=== PATIENT | male | born 1950 | race Caucasian/White ===

== ENCOUNTER → 2017-06-28 | Outpatient (CLI) | payer MEDICARE, BC ==
[~2017-06-28] MED LIST: SODIUM CHLORIDE 0.9% 500 ML in EMPTY BAG 1 BAG IV PRN
[2017-06-28] MEDS: INFLIXIMAB-DYYB 400 MG in SODIUM CHLORIDE 0.9% 250 ML IV ONE ×2 (09:05→09:10)
[2017-06-28 09:10] VITALS: TEMP 97.4
[2017-06-28 09:58] VITALS: RESP 16
[2017-06-28 11:13] VITALS: BP 158/94; PULSE 62
== END | disposition home or self-care (01) ==
LOC: PROCWHC3 08:29
PROVIDERS: ATTEND Internal Medicine Gastroenterology
DX: M05.79 Rheumatoid arthritis with rheumatoid factor of multiple sites without organ or systems involvement (principal)
CPT/HCPCS: 96413; 96415; Q5102

== ENCOUNTER → 2018-02-27 | Outpatient (CLI) | payer MEDICARE, BC ==
[~2018-02-27] MED LIST changes: +INFLIXIMAB-DYYB 400 MG in SODIUM CHLORIDE 0.9% 250 ML IV NR
[2018-02-27 09:10] VITALS: RESP 16; TEMP 98.1
[2018-02-27 10:26] VITALS: BP 147/102; PULSE 57
== END | disposition home or self-care (01) ==
LOC: PROCWHC3 07:44
PROVIDERS: ATTEND Internal Medicine Rheumatology
DX: M05.79 Rheumatoid arthritis with rheumatoid factor of multiple sites without organ or systems involvement (principal)
CPT/HCPCS: 96413; 96415; Q5103

== ENCOUNTER → 2018-05-01 | Outpatient (CLI) | payer MEDICARE, BC ==
[2018-05-01 08:56] VITALS: RESP 16; TEMP 97.8
[2018-05-01 11:00] VITALS: BP 150/90; PULSE 62
== END | disposition home or self-care (01) ==
LOC: PROCWHC3 08:26
PROVIDERS: ATTEND Internal Medicine Rheumatology
DX: M05.79 Rheumatoid arthritis with rheumatoid factor of multiple sites without organ or systems involvement (principal)
CPT/HCPCS: 96413; 96415; Q5103

== ENCOUNTER → 2018-07-03 | Outpatient (CLI) | payer MEDICARE, BC ==
[2018-07-03 09:05] VITALS: RESP 16; TEMP 97.7
[2018-07-03 10:57] VITALS: BP 160/89; PULSE 80
== END ==
LOC: PROCWHC3 08:29
PROVIDERS: ATTEND Internal Medicine Rheumatology
DX: M05.79 Rheumatoid arthritis with rheumatoid factor of multiple sites without organ or systems involvement (principal)
CPT/HCPCS: 96413; 96415; Q5103

== ENCOUNTER → 2019-03-04 | Outpatient (CLI) | payer MEDICARE, BC ==
[~2019-03-04] MED LIST changes: +SODIUM CHLORIDE 0.9% 500 ML 500 ML in EMPTY BAG 1 BAG IV PRN; -SODIUM CHLORIDE 0.9% 500 ML in EMPTY BAG 1 BAG IV PRN
[2019-03-04 08:22] VITALS: RESP 16; TEMP 98.1
[2019-03-04 10:01] VITALS: BP 129/93; PULSE 56
== END | disposition home or self-care (01) ==
LOC: PROCWHC3 08:06
PROVIDERS: ATTEND Internal Medicine Rheumatology
DX: M05.79 Rheumatoid arthritis with rheumatoid factor of multiple sites without organ or systems involvement (principal)
CPT/HCPCS: 96413; 96415; Q5103

== ENCOUNTER → 2019-04-29 | Outpatient (CLI) | payer MEDICARE, BC ==
[2019-04-29 08:26] VITALS: RESP 16; TEMP 97.6
[2019-04-29 10:06] VITALS: BP 148/89; PULSE 60
== END ==
LOC: PROCWHC3 08:04
PROVIDERS: ATTEND Internal Medicine Rheumatology
DX: M05.79 Rheumatoid arthritis with rheumatoid factor of multiple sites without organ or systems involvement (principal)
CPT/HCPCS: 96413; 96415; Q5103

== ENCOUNTER → 2019-07-01 | Outpatient (CLI) | payer MEDICARE, BC ==
[2019-07-01 08:21] VITALS: TEMP 97.8
[2019-07-01 09:35] VITALS: RESP 18
[2019-07-01 10:17] VITALS: BP 140/91; PULSE 53
== END ==
LOC: PROCWHC3 08:04
PROVIDERS: ATTEND Internal Medicine Rheumatology
DX: M05.79 Rheumatoid arthritis with rheumatoid factor of multiple sites without organ or systems involvement (principal)
CPT/HCPCS: 96365; 96366; Q5103

== ENCOUNTER → 2021-03-24 | Outpatient (CLI) | payer MEDICARE, BC ==
[~2021-03-24] MED LIST changes: +INFLIXIMAB-DYYB 400 MG in SODIUM CHLORIDE 0.9% 210 ML IV NR; -INFLIXIMAB-DYYB 400 MG in SODIUM CHLORIDE 0.9% 250 ML IV NR
[2021-03-24 08:23] VITALS: RESP 16; TEMP 98
[2021-03-24 09:48] VITALS: BP 144/95; PULSE 64
== END ==
LOC: PROCWHC3 07:48
PROVIDERS: ATTEND Internal Medicine Rheumatology
DX: M05.79 Rheumatoid arthritis with rheumatoid factor of multiple sites without organ or systems involvement (principal)
CPT/HCPCS: 96413; 96415; Q5103

== ENCOUNTER → 2021-05-24 | Outpatient (CLI) | payer MEDICARE, BC ==
[2021-05-24 08:23] VITALS: RESP 16; TEMP 97.4
[2021-05-24 09:37] VITALS: BP 145/82; PULSE 64
== END ==
LOC: PROCWHC3 07:54
PROVIDERS: ATTEND Internal Medicine Rheumatology
DX: M05.79 Rheumatoid arthritis with rheumatoid factor of multiple sites without organ or systems involvement (principal)
CPT/HCPCS: 96413; 96415; Q5103

== ENCOUNTER → 2021-07-22 | Outpatient (CLI) | payer MEDICARE, BC ==
[2021-07-22 08:26] VITALS: TEMP 98.1
[2021-07-22 09:06] VITALS: RESP 16
[2021-07-22 09:28] VITALS: PULSE 60
[2021-07-22 09:55] VITALS: BP 135/87
== END ==
LOC: PROCWHC3 08:06
PROVIDERS: ATTEND Internal Medicine Rheumatology
DX: M05.79 Rheumatoid arthritis with rheumatoid factor of multiple sites without organ or systems involvement (principal)
CPT/HCPCS: 96413; 96415; Q5103

== ENCOUNTER → 2022-03-11 | Outpatient (CLI) | payer MEDICARE, BC ==
[~2022-03-11] MED LIST changes: -INFLIXIMAB-DYYB 400 MG in SODIUM CHLORIDE 0.9% 210 ML IV NR; +INFLIXIMAB-DYYB 400 MG in SODIUM CHLORIDE 0.9% 250 ML IV NR
[2022-03-11 07:52] VITALS: RESP 16; TEMP 98
[2022-03-11 09:11] VITALS: BP 142/86; PULSE 57
== END ==
LOC: PROCWHC3 07:22
PROVIDERS: ATTEND Internal Medicine Rheumatology
DX: M05.79 Rheumatoid arthritis with rheumatoid factor of multiple sites without organ or systems involvement (principal)
CPT/HCPCS: 96413; 96415; Q5103

== ENCOUNTER → 2022-07-08 | Outpatient (CLI) | payer MEDICARE, BC ==
[2022-07-08 07:46] VITALS: RESP 16; TEMP 97.7
[2022-07-08 10:42] VITALS: BP 147/90; PULSE 54
== END ==
LOC: PROCWHC3 07:29
PROVIDERS: ATTEND Internal Medicine Rheumatology
DX: M05.79 Rheumatoid arthritis with rheumatoid factor of multiple sites without organ or systems involvement (principal); E66.9 Obesity, unspecified; Z68.27 Body mass index [BMI] 27.0-27.9, adult
CPT/HCPCS: 96413; 96415; Q5103

== ENCOUNTER → 2023-03-02 | Outpatient (CLI) | payer MEDICARE, BC ==
[2023-03-02 07:56] VITALS: TEMP 97.8
[2023-03-02 08:36] VITALS: RESP 15
[2023-03-02 09:18] VITALS: BP 122/78; PULSE 63
== END ==
LOC: PROCWHC3 07:31
PROVIDERS: ATTEND Internal Medicine Rheumatology
DX: M06.9 Rheumatoid arthritis, unspecified (principal)
CPT/HCPCS: 96365; 96366; Q5103

== ENCOUNTER → 2023-04-27 | Outpatient (CLI) | payer MEDICARE, BC ==
[2023-04-27 07:37] VITALS: TEMP 97.9
[2023-04-27 08:27] VITALS: RESP 16
[2023-04-27 08:47] VITALS: BP 126/72; PULSE 57
== END ==
LOC: PROCWHC3 07:21
PROVIDERS: ATTEND Internal Medicine Rheumatology
DX: M06.9 Rheumatoid arthritis, unspecified (principal)
CPT/HCPCS: 96413; Q5103; 96415

== ENCOUNTER → 2023-06-29 | Outpatient (CLI) | payer MEDICARE, BC ==
[2023-06-29 10:30] VITALS: RESP 16; TEMP 97.7
[2023-06-29 11:44] VITALS: BP 123/76; PULSE 50
== END ==
LOC: PROCWHC3 10:00
PROVIDERS: ATTEND Internal Medicine Rheumatology
DX: M06.9 Rheumatoid arthritis, unspecified (principal)
CPT/HCPCS: 96413; 96415; Q5103

== ENCOUNTER → 2024-03-05 | Outpatient (CLI) | payer MEDICARE, BC ==
[2024-03-05 08:32] VITALS: RESP 16; TEMP 97.8
[2024-03-05] MEDS: SODIUM CHLORIDE 0.9% 500 ML 500 ML in EMPTY BAG 1 BAG IV PRN (08:34)
[2024-03-05] MEDS: INFLIXIMAB-DYYB 400 MG in SODIUM CHLORIDE 0.9% 250 ML IV NR (08:47)
[2024-03-05 09:55] VITALS: BP 116/75; PULSE 52
== END ==
LOC: PROCWHC3 08:11
PROVIDERS: ATTEND Internal Medicine Rheumatology
DX: M06.9 Rheumatoid arthritis, unspecified (principal)
CPT/HCPCS: 96413; 96415; Q5103

== ENCOUNTER → 2024-05-25 | Outpatient (CLI) | payer MEDICARE, BC ==
--- NOTE | 2024-05-25 15:58 | MR ---
EXAMINATION TYPE: MR brain wo/w con DATE OF EXAM: 05/25/2024 2:58 PM CLINICAL INDICATION: Male, 73 years old with history of R63.4, R25.1;, severe imbalance, tremors, fal ls, headaches COMPARISON: None TECHNIQUE: Multi planar, multi sequence imaging was performed through the brain including: T1, T2, In version recovery, susceptibility weighted imaging and gradient echo imaging and Diffusion weighted im aging. The patient was then given intravenous contrast and multi planar, T1 fat-saturation images wer e obtained. IV Contrast: 8 cc Gadavist FINDINGS: The eddy-white junctions, ventricular system, basal cisterns appear unremarkable. Diffusion-weighted imaging shows no evidence of restricted diffusion to suggest acute/subacute infarct. Intracranial ar terial flow voids are maintained. Midline structures show no abnormality. Scattered foci of high T2 s ignal intensity are seen within the periventricular white matter. The susceptibility weighted images do not reveal any evidence for micro-hemorrhage. After administration of gadolinium, no abnormal enha ncement is seen. The bone marrow signal is within normal limits. Paranasal sinuses and mastoid air cells: No significant paranasal sinus disease. Visualized orbits: Orbital contents are intact. IMPRESSION: 1. No evidence of intracranial mass, acute/subacute infarct, or abnormal enhancement. 2. Nonspecific white matter changes, likely related to small vessel ischemic disease.
== END | disposition home or self-care (01) ==
LOC: RADMRIMAIN 13:44
PROVIDERS: ATTEND Family Medicine
DX: R63.4 Abnormal weight loss (principal); R25.1 Tremor, unspecified
CPT/HCPCS: 70553; A9585

== ENCOUNTER → 2024-07-02 | Outpatient (CLI) | payer MEDICARE, BC ==
[~2024-07-02] MED LIST changes: -SODIUM CHLORIDE 0.9% 500 ML 500 ML in EMPTY BAG 1 BAG IV PRN
[2024-07-02] MEDS: SODIUM CHLORIDE 0.9% 500 ML 500 ML in EMPTY BAG 1 BAG IV PRN (08:10)
[2024-07-02 08:15] VITALS: RESP 16; TEMP 97.9
[2024-07-02] MEDS: INFLIXIMAB-DYYB 300 MG in SODIUM CHLORIDE 0.9% 250 ML IV NR (08:47)
[2024-07-02 09:55] VITALS: BP 119/75; PULSE 52
== END ==
LOC: PROCWHC3 07:39
PROVIDERS: ATTEND Internal Medicine Rheumatology
DX: M06.9 Rheumatoid arthritis, unspecified (principal)
CPT/HCPCS: 96413; 96415

== ENCOUNTER → 2024-08-20 | Outpatient (CLI) | payer MEDICARE, BC ==
[~2024-08-20] MED LIST changes: -INFLIXIMAB-DYYB 400 MG in SODIUM CHLORIDE 0.9% 250 ML IV NR; +SODIUM CHLORIDE 0.9% 250 ML in EMPTY BAG 1 BAG IV PRN
[2024-08-20 07:52] VITALS: RESP 16; TEMP 97.8
[2024-08-20] MEDS: SODIUM CHLORIDE 0.9% 500 ML 500 ML in EMPTY BAG 1 BAG IV PRN (08:02)
[2024-08-20] MEDS: INFLIXIMAB-DYYB 300 MG in SODIUM CHLORIDE 0.9% 250 ML IV NR (08:09)
[2024-08-20 09:21] VITALS: BP 119/77; PULSE 52
== END ==
LOC: PROCWHC3 07:41
PROVIDERS: ATTEND Internal Medicine Rheumatology
DX: M06.9 Rheumatoid arthritis, unspecified (principal)
CPT/HCPCS: 96413; 96415; Q5103

== ENCOUNTER → 2024-10-15 | Outpatient (CLI) | payer MEDICARE, BC ==
[2024-10-15] MEDS: SODIUM CHLORIDE 0.9% 500 ML 500 ML in EMPTY BAG 1 BAG IV PRN (08:00)
[2024-10-15 08:05] VITALS: RESP 16; TEMP 97.8
[2024-10-15] MEDS: INFLIXIMAB-DYYB 300 MG in SODIUM CHLORIDE 0.9% 250 ML IV NR (08:48)
[2024-10-15 09:52] VITALS: BP 114/76; PULSE 55
== END ==
LOC: PROCWHC3 07:47
PROVIDERS: ATTEND Internal Medicine Rheumatology
DX: M06.9 Rheumatoid arthritis, unspecified (principal)
CPT/HCPCS: 96413; 96415; Q5103

== ENCOUNTER → 2024-12-17 | Outpatient (CLI) | payer MEDICARE, BC ==
[~2024-12-17] MED LIST changes: +INFLIXIMAB-DYYB 300 MG in SODIUM CHLORIDE 0.9% 250 ML IV NR; +SODIUM CHLORIDE 0.9% 500 ML 500 ML in EMPTY BAG 1 BAG IV PRN
== END ==
LOC: PROCWHC3 07:32
PROVIDERS: ATTEND Internal Medicine Rheumatology
DX: Z53.8 Procedure and treatment not carried out for other reasons (principal)

== ENCOUNTER → 2024-12-23 | Outpatient (CLI) | payer MEDICARE, BC ==
[~2024-12-23] MED LIST changes: -INFLIXIMAB-DYYB 300 MG in SODIUM CHLORIDE 0.9% 250 ML IV NR; -SODIUM CHLORIDE 0.9% 500 ML 500 ML in EMPTY BAG 1 BAG IV PRN
[2024-12-23 07:47] VITALS: RESP 16; TEMP 97.6
[2024-12-23] MEDS: SODIUM CHLORIDE 0.9% 500 ML 500 ML in EMPTY BAG 1 BAG IV PRN (07:49)
[2024-12-23] MEDS: INFLIXIMAB-DYYB 300 MG in SODIUM CHLORIDE 0.9% 250 ML IV NR (08:25)
[2024-12-23 08:57] VITALS: PULSE 62
[2024-12-23 09:28] VITALS: BP 115/77
== END ==
LOC: PROCWHC3 07:37
PROVIDERS: ATTEND Internal Medicine Rheumatology
DX: M06.9 Rheumatoid arthritis, unspecified (principal)
CPT/HCPCS: 96413; 96415; Q5103

== ENCOUNTER → 2025-02-13 | Outpatient (CLI) | payer MEDICARE, BC ==
[2025-02-13 08:01] VITALS: RESP 16; TEMP 98.1
[2025-02-13] MEDS: SODIUM CHLORIDE 0.9% 500 ML 500 ML in EMPTY BAG 1 BAG IV PRN (08:06)
[2025-02-13] MEDS: INFLIXIMAB-DYYB 300 MG in SODIUM CHLORIDE 0.9% 220 ML IV NR (08:25)
[2025-02-13 09:23] VITALS: BP 123/77; PULSE 60
== END ==
LOC: PROCWHC3 07:35
PROVIDERS: ATTEND Internal Medicine Rheumatology
DX: M06.9 Rheumatoid arthritis, unspecified (principal)
CPT/HCPCS: 96413; 96415; Q5103; 96365; 96366

== ENCOUNTER → 2025-04-08 | Outpatient (CLI) | payer MEDICARE, BC ==
[2025-04-08 07:50] VITALS: RESP 16; TEMP 97.7
[2025-04-08] MEDS: SODIUM CHLORIDE 0.9% 500 ML 500 ML in EMPTY BAG 1 BAG IV PRN (07:50)
[2025-04-08] MEDS: INFLIXIMAB-DYYB 400 MG in SODIUM CHLORIDE 0.9% 210 ML IV NR (08:20)
[2025-04-08 09:27] VITALS: BP 121/78; PULSE 55
== END ==
LOC: PROCWHC3 07:32
PROVIDERS: ATTEND Internal Medicine Rheumatology
DX: M06.9 Rheumatoid arthritis, unspecified (principal)
CPT/HCPCS: 96413; 96415; Q5103